=== PATIENT | male | born 1980 | race American Indian/Alaskan Native ===

== ENCOUNTER 2017-04-20 10:17 | Emergency (ER) | payer MEDICAID, OTHER ==
[2017-04-20 10:23] VITALS: BP 125/88; PULSE 75; RESP 16; TEMP 97.5; O2SAT 98
--- NOTE | 2017-04-20 11:48 | C.PDOC ---
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 Patient denies any direct trauma, abdominal pain, diarrhea, dysuria, incontinence, weakness or numbness. Time Seen by Provider: 04/20/17 10:53 Chief Complaint (Nursing): Back Pain History Per: Patient History/Exam Limitations: no limitations Onset/Duration Of Symptoms: Days (1) Current Symptoms Are (Timing): Still Present Past Medical History Reviewed: Historical Data, Nursing Documentation, Vital Signs Vital Signs: Last Vital Signs Temp 97.5 F L 04/20/17 10:21 Pulse 75 04/20/17 10:21 Resp 16 04/20/17 10:21 BP 125/88 04/20/17 10:21 Pulse Ox 98 04/20/17 11:59 Family History: States: No Known Family Hx - Social History Hx Tobacco Use: Yes Hx Alcohol Use: Yes Hx Substance Use: No - Immunization History Hx Tetanus Toxoid Vaccination: Yes Hx Influenza Vaccination: No Hx Pneumococcal Vaccination: No Review Of Systems Except As Marked, All Systems Reviewed And Found Negative. Gastrointestinal: Negative for: Abdominal Pain, Diarrhea Genitourinary: Negative for: Dysuria, Incontinence Musculoskeletal: Positive for: Back Pain (Low) Neurological: Negative for: Weakness, Numbness Physical Exam - Physical Exam Appears: Non-toxic, No Acute Distress, Other ((+) Morbidly obese) Skin: Warm, Dry, No Rash Head: Atraumatic, Normacephalic Neck: Normal, Normal ROM, No Midline Cervical Tenderness, No Step Off Deformity , Supple Chest: Symmetrical, No Tenderness Cardiovascular: Rhythm Regular, No Murmur Respiratory: Normal Breath Sounds, No Rales, No Rhonchi, No Stridor, No Wheezing Gastrointestinal/Abdominal: Normal Exam, Soft, No Tenderness, No Guarding, No Rebound Back: No CVA Tenderness, Paraspinal Tenderness (Lumbar paraspinal tenderness), Other (No Saddle Anesthesia) Extremity: Normal ROM, No Tenderness, No Swelling Neurological/Psych: Oriented x3, Normal Speech, Normal Motor ED Course And Treatment O2 Sat by Pulse Oximetry: 98 (RA) Pulse Ox Interpretation: Normal Medical Decision Making Medical Decision Making: PLAN: * X-Ray - LS Spine * Flexeril PO * Toradol IM suspect msk pain - lr neg. pain improved. no saddle anesthesia/urinary changes. ambulatory steady gait. stable for d/c Disposition - Disposition Disposition: HOME/ ROUTINE Disposition Time: 11:48 Condition: STABLE Additional Instructions: please follow up with your doctor. return to er with worsneing symptoms or concerns. Prescriptions: Cyclobenzaprine [Cyclobenzaprine HCl] 10 mg PO DAILY #7 tab Naproxen [Naprosyn] 500 mg PO BID PRN #14 tablet PRN Reason: Pain, Mild (1-3) Instructions: Acute Low Back Pain (ED) Forms: [employer] (Scottish), Work Excuse - Clinical Impression Clinical Impression: Low back pain - Scribe Statement The provider has reviewed the documentation as recorded by the Alton Santos Provider Attestation: All medical record entries made by the Alton were at my direction and personally dictated by me. I have reviewed the chart and agree that the record accurately reflects my personal performance of the history, physical exam, medical decision making, and the department course for this patient. I have also personally directed, reviewed, and agree with the discharge instructions and disposition.
--- NOTE | 2017-04-20 13:05 | RAD ---
PROCEDURE: Radiographs of the Lumbar Spine. HISTORY: low back pain COMPARISON: None available. FINDINGS: BONES: Alignment appears satisfactory. No listhesis. No acute displaced fracture identified. DISC SPACES: Unremarkable. OTHER FINDINGS: None. IMPRESSION: No acute displaced fracture or subluxation identified.
== END 2017-04-20 11:57 | disposition home or self-care (01) ==
LOC: C.ER 10:17
DX: M54.5 Low back pain (principal)
CPT/HCPCS: 72100; 96372; 99283; J1885

== ENCOUNTER 2018-03-19 10:59 | Emergency (ER) | payer MEDICAID, OTHER ==
--- NOTE | 2018-03-19 11:43 | C.PDOC ---
History Of Present Illness 38 y/o male presents to ED for evaluation of laceration sustained to right 2nd finger after slamming door on finger last night. Patient reports active bleeding since injury and denies numbness, other injury or any other complaints at this time. Time Seen by Provider: 03/19/18 11:23 Chief Complaint (Nursing): Upper Extremity Problem/Injury History Per: Patient History/Exam Limitations: no limitations Onset/Duration Of Symptoms: Days Current Symptoms Are (Timing): Still Present Quality: "Pain" Past Medical History Reviewed: Historical Data, Nursing Documentation, Vital Signs Vital Signs: Last Vital Signs Temp 98 F 03/19/18 13:35 Pulse 81 03/19/18 13:35 Resp 18 03/19/18 13:35 BP 116/77 03/19/18 13:35 Pulse Ox 98 03/19/18 13:41 - Medical History PMH: No Chronic Diseases Surgical History: No Surg Hx Family History: States: No Known Family Hx - Social History Hx Tobacco Use: Yes Hx Alcohol Use: Yes Hx Substance Use: No - Immunization History Hx Tetanus Toxoid Vaccination: Yes Hx Influenza Vaccination: No Hx Pneumococcal Vaccination: No Review Of Systems Musculoskeletal: Positive for: Hand Pain Skin: Negative for: Rash, Bruising Neurological: Negative for: Weakness, Numbness Physical Exam - Physical Exam Appears: Non-toxic, No Acute Distress Skin: Warm, Dry, No Rash, Other (2.5 D-shaped laceration to right 2nd finger. Bleeding noted) Head: Atraumatic, Normacephalic Eye(s): bilateral: Normal Inspection Oral Mucosa: Moist Extremity: Capillary Refill (<2 seconds), No Deformity Pulses: Right Radial: Normal Neurological/Psych: Oriented x3, Normal Motor, Normal Sensation ED Course And Treatment O2 Sat by Pulse Oximetry: 98 (RA) Pulse Ox Interpretation: Normal Procedure: Wound Repair - Time Performed Time Performed: 13:00 - Time Out Time Out: Side verified, Site verified - Performed by Performed by: Mid-level Provider - Indications Indication(s):: Laceration - Anesthetic Technique Anesthetic Technique: Regional block (digital block) Local/Regional Anesthetic:: Lidocaine 1% - Debris Debris:: None - Irrigated Irrigated with ml of normal saline: 1000 - Complexity Complexity:: Simple (one layer) - Wound repair method Sutures:: # (three), Size (4-0), Type (nylon) Joe:: Tissue glue, Steri-strips - Patient tolerated procedure Patient Tolerated Procedure:: Well Disposition - Disposition Referrals: [facility] [Outside] Marti Proctor MD [Staff Provider] - Disposition: HOME/ ROUTINE Disposition Time: 13:37 Condition: GOOD Additional Instructions: Leave the finger wrapped and dry for the whole week. Take antibiotics until completed. 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 - Scribe Statement The provider has reviewed the documentation as recorded by the Scribmargie Carney All medical record entries made by the Scribmargie were at my direction and personally dictated by me. I have reviewed the chart and agree that the record accurately reflects my personal performance of the history, physical exam, medical decision making, and the department course for this patient. I have also personally directed, reviewed, and agree with the discharge instructions and disposition.
[2018-03-19] MEDS ORDERED: Lidocaine 2% Inj (20ml) INFIL ONE (11:48)
[2018-03-19] MEDS ORDERED: Lidocaine 2% MPF (5 ml) Inj ONE (12:02)
--- NOTE | 2018-03-19 13:00 | RAD ---
Date of service: 03/19/2018 PROCEDURE: Right Index finger radiographs. HISTORY: ft 5 - r/o fx COMPARISON: None available TECHNIQUE: AP radiograph of the right hand, as well as spot oblique and lateral images of index finger were obtained. FINDINGS: RIGHT INDEX FINGER: Unremarkable right index finger, without fracture or focal lesion. Remainder of the right hand (as seen on the AP view) grossly intact. JOINTS: Unremarkable. SOFT TISSUES: Unremarkable. No evidence of radiopaque foreign body. OTHER FINDINGS: None. IMPRESSION: Unremarkable right index finger radiographs.
[2018-03-19 13:36] VITALS: BP 116/77; PULSE 81; RESP 18; TEMP 98
[2018-03-19 13:38] VITALS: O2SAT 98
== END 2018-03-19 13:53 | disposition home or self-care (01) ==
LOC: C.ER 10:59
DX: S61.210A Laceration without foreign body of right index finger without damage to nail, initial encounter (principal); W22.8XXA Striking against or struck by other objects, initial encounter

== ENCOUNTER 2018-06-14 17:28 | Emergency (ER) | payer OTHER ==
[2018-06-14 17:52] VITALS: BP 130/78; PULSE 75; RESP 20; TEMP 98.1; O2SAT 98
[2018-06-14] MEDS ORDERED: Sodium Chloride 0.9% 1,000 ML IV ONE (18:40)
[2018-06-14 18:58] LABS: BASO # 0.1 K/uL (0.0-0.2); BASO % 1.1 % (0.0-2.0); EOS # 0.1 K/uL (0.0-0.7); EOS % 2.3 % (0.0-4.0); HEMOGLOBIN 14.4 g/dL (12.0-18.0); LYMPH # 0.9 K/uL (1.0-4.3); LYMPH % 17.3 % (20.0-40.0); MEAN CELL VOLUME 85.7 fL (80.0-94.0); MEAN CORPUSCULAR HEMOGLOBIN 28.4 pg (27.0-31.0); MEAN CORPUSCULAR HGB CONC 33.1 g/dL (33.0-37.0); MEAN PLATELET VOLUME 8.7 fL (7.2-11.7); MONO # 0.5 K/uL (0.0-0.8); MONO % 8.8 % (0.0-10.0); NEUT # 3.6 K/uL (1.8-7.0); NEUT % 70.5 % (50.0-75.0); NRBC % 0.1 % (0.0-2.0); RBC 5.06 Mil/uL (4.40-5.90); RED CELL DISTRIBUTION WIDTH 12.8 % (11.5-14.5); WHITE BLOOD COUNT 5.2 K/uL (4.8-10.8)
[2018-06-14 19:03] LABS: ALB/GLOB RATIO 1.1 (1.0-2.1); ALBUMIN 3.9 g/dL (3.5-5.0); ALT/SGPT 26 U/L (21-72); AST/SGOT 28 U/L (17-59); BLOOD UREA NITROGEN 15 mg/dL (9-20); CALCIUM 9.1 mg/dl (8.6-10.4); GFR NON-AFRICAN AMERICAN > 60; LIPASE 71 U/L (23-300)
[2018-06-14 19:08] LABS: URINE BILIRUBIN NEGATIVE (NEGATIVE); URINE CLARITY Clear (Clear); URINE COLOR Yellow (YELLOW); URINE GLUCOSE (UA) NORMAL (Normal)
[2018-06-14 19:09] LABS: URINE BLOOD NEGATIVE (NEGATIVE); URINE LEUKOCYTE ESTERASE NEG Leu/uL (Negative); URINE PROTEIN NEGATIVE (NEGATIVE); URINE UROBILINOGEN NORMAL mg/dL (0.2-1.0)
--- NOTE | 2018-06-14 19:11 | C.PDOC ---
History Of Present Illness 38 year old male presents to the ED complaining of left lower flank pain for 3 days. Associated symptoms include dizziness, nausea, diarrhea since today. Denies any chest pain, shortness of breath, fever, chills or urinary symptoms. Reports pain comes in waves that last approximately 10 minutes. Denies any history of renal colic. Notes he lost 5 lbs of intentional weight with dietary discretion. Time Seen by Provider: 06/14/18 17:54 Chief Complaint (Nursing): Abdominal Pain History Per: Patient History/Exam Limitations: no limitations Onset/Duration Of Symptoms: Days Current Symptoms Are (Timing): Still Present Location Of Pain/Discomfort: LLQ Radiation Of Pain To:: None Associated Symptoms: Nausea, Diarrhea. denies: Fever, Chills, Vomiting, Back Pain, Urinary Symptoms Past Medical History Reviewed: Historical Data, Nursing Documentation, Vital Signs Vital Signs: Last Vital Signs Temp 98.1 F 06/14/18 17:46 Pulse 75 06/14/18 17:46 Resp 20 06/14/18 17:46 BP 130/78 06/14/18 17:46 Pulse Ox 98 06/14/18 17:46 - Medical History PMH: No Chronic Diseases Surgical History: No Surg Hx Family History: States: No Known Family Hx - Social History Hx Tobacco Use: Yes Hx Alcohol Use: Yes Hx Substance Use: No - Immunization History Hx Tetanus Toxoid Vaccination: Yes Hx Influenza Vaccination: No Hx Pneumococcal Vaccination: No Review Of Systems Except As Marked, All Systems Reviewed And Found Negative. Constitutional: Negative for: Fever, Chills Cardiovascular: Negative for: Chest Pain Respiratory: Negative for: Shortness of Breath Gastrointestinal: Positive for: Nausea, Abdominal Pain (left lower flank ), Diarrhea. Negative for: Vomiting Genitourinary: Negative for: Dysuria, Hematuria Neurological: Positive for: Dizziness Physical Exam - Physical Exam Appears: Non-toxic, No Acute Distress, Other (morbidly obese) Skin: Warm, Dry, No Rash Head: Atraumatic, Normacephalic Eye(s): bilateral: Normal Inspection Neck: Normal ROM, Supple Chest: Symmetrical Cardiovascular: Rhythm Regular Respiratory: Normal Breath Sounds, No Rales, No Rhonchi, No Wheezing Gastrointestinal/Abdominal: Soft, No Tenderness, No Distention, No Guarding, No Rebound Extremity: Bilateral: Normal Color And Temperature, Normal ROM Neurological/Psych: Oriented x3, Normal Speech Gait: Steady ED Course And Treatment - Laboratory Results Result Diagrams: 06/14/18 18:46 06/14/18 18:46 Lab Interpretation: Normal (ua neg.) O2 Sat by Pulse Oximetry: 98 (RA) Pulse Ox Interpretation: Normal - Radiology CXR: Interpreted by Me CXR Interpretation: Yes: No Acute Disease - Other Rad abd x 2 X-Ray: Interpreted by Me (+FOS, no obst/FA) Medical Decision Making Medical Decision Making: Plan -- XR abdomen -- Toradol 30mg IVP -- IV fluids constipation low susp of renal colic. Disposition Doctor Will See Patient In The: Office Counseled Patient/Family Regarding: Studies Performed, Diagnosis - Disposition Referrals: [facility] [Outside] [facility] [Outside] [facility] [Outside] [facility] [Outside] Disposition: HOME/ ROUTINE Disposition Time: 19:11 Condition: GOOD Additional Instructions: trial a laxative (drink an entire bottle of Mag Citrate) and re-evaluate your abdominal discomfort after 2-3 bowel movements diet and exercise changes drink more water continued weight loss Follow-up in our outpatient Family Practice [facility] as needed. Instructions: Constipation, Adult (DC), Gas and Bloating (ED) Forms: [employer] (Indonesian) - Clinical Impression Clinical Impression: Abdominal colic
--- NOTE | 2018-06-15 07:07 | RAD ---
Abdomen four views History: Abdominal pain. Comparison: X-ray dated 01/18/2016. CT dated 09/25/2013. Findings: Mild patchy increased markings and nodularity at the left lung base laterally. This is of uncertain clinical etiology. Clinical correlation. Correlation with chest CT may be helpful if clinically indicated. Moderate fecal retention in the colon. Few mildly distended loops of small bowel in the lower abdomen. Mild degenerative changes in the bilateral hips. Impression: Moderate fecal retention in the colon. Mild patchy increased markings and nodularity at the left lung base laterally. This is of uncertain clinical etiology. Clinical correlation. Correlation with chest CT may be helpful if clinically indicated.
== END 2018-06-14 19:26 | disposition home or self-care (01) ==
LOC: C.ER 17:28
DX: R10.84 Generalized abdominal pain (principal)
CPT/HCPCS: 74022; 80053; 81001; 83690; 85025; 96374; 99285; J1885; J7030